=== PATIENT | male | born 1990 | race Caucasian/White ===

== ENCOUNTER → 2024-11-28 10:29 | Outpatient (REF) | payer OTHER, SELFPAY | LOC: RAD 10:29 | PROVIDERS: ATTENDING PHYSICIAN Nurse Practitioner Family | DX: N50.811 Right testicular pain (principal) | CPT/HCPCS: 76870; 93976 ==

== ENCOUNTER → 2025-05-10 15:27 | Outpatient (REF) | payer OTHER, SELFPAY | LOC: HWRCS 15:27 | PROVIDERS: ATTENDING PHYSICIAN Nurse Practitioner Family | DX: R06.02 Shortness of breath (principal); R07.9 Chest pain, unspecified | CPT/HCPCS: 93306 ==